=== PATIENT | male | born 1975 | race Caucasian/White ===

== ENCOUNTER 2018-08-15 05:26 | Day surgery (SDC) | payer OTHER ==
[~2018-08-15 05:26] MED LIST: COZAAR50 MG PO; FORTAMET1000 MG PO; GLUCOTROL10 MG PO; JANUVIA100 MG PO; LANTUS
== END 2018-08-15 10:07 | disposition home or self-care (01) ==
LOC: CIR LITO 05:26 → SURH 10:00 → CIR.AMB 10:00 → EDSTATUS 10:00 → CIR LITO 10:07
DX: N20.0 Calculus of kidney (principal)